=== PATIENT | male | born 1955 | race Caucasian/White ===

== ENCOUNTER 2019-12-11 19:55 | Inpatient (IN) | payer MEDICARE ==
[~2019-12-11] VITALS: Ht 167.6 cm; Wt 56.6 kg
--- NOTE | ~2019-12-11 | HEMODYNAMI ---
PATIENT:ELISEO WOODWARD MEDICAL RECORD: [id number] : 51 [id number] ADMISSION DATE: 12/24/19 Generatedon:12/24/201910:47 Patient name: ELISEO WOODWARD Patient #: [id number] SSN: : 1955 Date of study: 12/24/2019 Page: Of Hemodynamic Procedure Report Patient Data Patient Demographics First Name: ELISEO Gender: Male Last Name: TRACE : 1955 Patient #: [id number] Age: 64 year(s) Race: Unknown Additional ID: [id number] Contact details Address: [address] [place] [address] State: [place] City: [place] Zip code: [address] Admission Admission Data Admission Date: 12/24/2019 Admission Time: 6:17 Room #: [facility] Procedure Procedure Types Cath Procedure Peripheral Cath Diagnostic Procedure Miscellaneous Procedure Description Procedure Date Procedure Date: 12/24/2019 Procedure Start Time: 9:35 Procedure Staff Name Function Oswald Nunez MD Performing Physician WALTER FRASER RT Scrub Giovany Umanzor RT Monitor Delmy Arriola RN Nurse Procedure Data Cath Procedure Fluoroscopy Diagnostic fluoroscopy Total fluoroscopy Time: 7.8 time: 7.8 min min Diagnostic fluoroscopy Total fluoroscopy dose: 367 dose: 367 mGy mGy Contrast Material Contrast Material Type Amount (ml) Isovue 300 60 Diagnostic catheters Device Type Used For End Catheter Placement Merit Impress [place] 5FR. 100CM catheter ([id number]) Procedure Medications Medication Administration Route Dosage Heparin Flush Bag added to field 4 bags (1000units/500ml NS) Lidocaine 1% added to field 20 Versed I.V. 0.5 mg Fentanyl I.V. 25 mcg Heparin Bolus I.V. 4000 units Hemodynamics Rest Heart Rate: 96 (bpm) Snapshots Pre Cath Intra NCS Post Cath Vital Signs Time Heart Resp SPO2 etCO2 NIBP (mmHg) Rhythm Pain Sedation Rate (ipm) (%) (mmHg) Status Level (bpm) 9:13:44 91 25 98 33.7 185/102(142) NSR 0 (11) 10(A) , No pain 9:18:12 95 20 97 31.4 187/98(135) NSR 0 (11) 10(A) , No pain 9:22:37 82 14 97 32.2 163/96(123) NSR 0 (11) 10(A) , No pain 9:27:36 83 23 96 25.4 Measuring NSR 0 (11) 10(A) , No pain 9:28:00 89 19 97 33.7 161/101(146) NSR 0 (11) 10(A) , No pain 9:32:22 89 14 96 32.2 171/99(137) NSR 0 (11) 10(A) , No pain 9:36:45 80 19 99 34.4 169/98(138) NSR 0 (11) 10(A) , No pain 9:41:11 66 21 98 35.1 183/85(125) NSR 0 (11) 10(A) , No pain 9:45:35 72 20 100 32.2 161/89(128) NSR 0 (11) 8(A) , No pain 9:49:55 68 19 99 33.7 151/79(131) NSR 0 (11) 8(A) , No pain 9:54:17 77 18 99 32.2 149/76(124) NSR 0 (11) 8(A) , No pain 9:58:35 68 16 100 32.9 153/80(135) NSR 0 (11) 8(A) , No pain 10:02:54 73 20 100 32.9 170/87(125) NSR 0 (11) 8(A) , No pain 10:07:18 70 20 100 32.9 159/86(132) NSR 0 (11) 8(A) , No pain 10:11:40 62 16 100 32.2 168/75(129) NSR 0 (11) 8(A) , No pain 10:15:56 48 20 100 29.2 81/48(74) NSR 0 (11) 8(A) , No pain 10:17:12 55 23 100 31.4 76/41(55) NSR 0 (11) 8(A) , No pain 10:18:46 50 16 100 20.9 68/47(52) NSR 0 (11) 8(A) , No pain 10:20:41 50 21 99 24.6 75/53(60) NSR 0 (11) 8(A) , No pain 10:22:31 52 23 99 29.9 90/51(85) NSR 0 (11) 8(A) , No pain 10:26:37 53 25 100 31.4 99/49(81) NSR 0 (11) 8(A) , No pain 10:30:33 52 22 100 29.9 101/85(91) NSR 0 (11) 8(A) , No pain 10:34:38 50 16 100 32.9 88/52(76) NSR 0 (11) 8(A) , No pain 10:38:44 61 32 100 26.1 79/57(71) NSR 0 (11) 8(A) , No pain 10:42:46 63 17 100 29.2 90/53(72) NSR 0 (11) 8(A) , No pain 10:46:40 50 12 100 32.1 103/86(95) NSR 0 (11) 8(A) , No pain Medications Time Medication Route Dose Verified Delivered Reason Notes Effec tiveness by by 9:21:22 Heparin Flush added 4 Oswald Akers used for Bag to bags Mayra Nunez procedure (1000units/500ml field MD CARRENO NS) 9:21:36 Lidocaine 1% added 20ml Oswald Akers for local to vial Mayra Nunez anesthetic field MD CARRENO 9:35:07 Versed I.V. 0.5 Oswald Brock for mg Mayra Arriola RN sedation 9:36:25 Fentanyl I.V. 25 Oswald Brock for mcg Mayra Arriola RN sedation 9:42:02 Heparin Bolus I.V. 4000 Oswald Brock Per units Mayra Arriola RN physician Procedure Log Time Note 8:51:52 Giovany Umanzor RT (R) (CV) sent for patient. Start room use. 8:52:02 Time tracking: Regular hours (M-F 7:00 - 5:00) 8:52:08 Plan of Care:Hemodynamics will remain stable., Cardiac rhythm will remain stable., Comfort level will be maintained., Respiratory function will remain adequate., Patient/ family verbilizes understanding of procedure., Procedure tolerated without complication., Recovers from procedure without complications.. 8:53:53 Patient received from Outpatients to IR Alert and oriented. Tansferred to table in Supine position. 8:53:55 Warm blankets applied, and shanda hugger turned on for patient comfort. 8:53:58 Correct patient and procedure confirmed by team. 8:54:02 ECG and BP/O2 sat monitors applied to patient. 8:54:05 Full Disclosure recording started 8:54:05 - 8:54:15 Use device set IR Diagnostic 8:54:16 Tegaderm 4 x 4 (1626W) opened to sterile field. 8:54:17 Sterile Angiographic Pack opened to sterile field. 8:54:18 Bag Decanter (2001S) opened to sterile field. 8:54:19 ACIST Hand Control (34502) opened to sterile field. 8:54:20 ACIST Syringe (78201) opened to sterile field. 8:54:20 ACIST Manifold (01446) opened to sterile field. 8:54:29 H&P Date Dictated: 12/24/2019 H&P Addendum completed by physician on day of procedure. (MUST COMPLETE FOR ALL OUTPATIENTS). 8:54:29 Pre-procedure instructions explained to patient. 8:54:30 Pre-op teaching completed and patient verbalized understanding. 8:54:32 Family unavailable. 8:54:33 Patient NPO since Midnight. 8:54:38 Is the patient allergic to Iodine/contrast media? No. 8:54:40 Is patient on blood thinner?Yes 8:54:43 ACC The patient was administered the following blood thiners within the last 24 hours: ACCPlavix 8:54:45 Patient diabetic? No. 8:54:47 - 8:54:47 ----Pre-sedation anethsthesia assessment.---- 8:54:51 Previous problem with sedation/anesthesia? No ? 8:54:51 Snore? Yes 8:54:53 Sleep apnea? No 8:54:55 Deviated septum? No 8:54:57 Opens mouth fully? Yes 8:54:58 Sticks out tongue? Yes 8:55:01 Airway obstruction? No ? 8:55:20 Dentures? Yes out 8:55:22 - 9:12:28 Vital chart was started 9:12:29 Baseline sample Acquired. 9:13:13 Pre procedure: right dorsailis pedis pulse Doppler 9:13:18 Pre procedure: right posterior tibial pulse Doppler 9:13:23 Patient pain scale 0/10 no pain. 9:13:57 IV patent on arrival in left forearm with 0.9% NaCl at KVO. 9:14:22 2) 60-89 Mildly reduced kidney function, and other findings (as for stage 1) point to kidney disease. 9:15:07 Maximum allowable contrast dose (3.7 X eGFR X 0.75)177.6 ml. 9:15:15 Alarms reviewed by R. N. 9:15:16 Sharps counted by scrub and verified by R.N. 9:15:24 Right groin area was prepped with chlora-prep and draped in sterile fashion 9:21:22 Heparin Flush Bag (1000units/500ml NS) 4 bags added to field was administered by Oswald Nunez MD; used for procedure; Verbal order read back and verified. 9:21:36 Lidocaine 1% 20ml vial added to field was administered by Oswald calvillo MD; for local anesthetic; Verbal order read back and verified. 9:33:27 Physician arrived 9:33:28 --------ALL STOP TIME OUT------ 9:33:29 Final Timeout: patient, procedure, and site verified with staff and physician. All members of the team are in agreement. 9:33:31 Right groin site verified by team. 9:33:34 Fire Safety Assessment: A--An alcohol-based skin anteseptic being used preoperatively., C--Open oxygen or nitrous oxide is being used. 9:33:58 Sedation plan: IV Moderate Sedation Medication:Versed, Fentanyl 9:35:02 Procedure started. 9:35:05 Local anesthetic to right femoral artery with Lidocaine 1% by Oswald Nunez MD.INITIAL ACCESS ONLY 9:35:07 Versed 0.5 mg I.V. was administered by Delmy Arriola RN; for sedation; Verbal order read back and verified. 9:35:08 TUBING Contrast Injection High Pressure ([id number]) opened to sterile field. 9:35:08 TRACY 260 wire (R83160) opened to sterile field. 9:35:08 BENTSON 145cm wire (J84427) opened to sterile field. 9:35:09 SHEATH 5FR Keene (ZIP315) opened to sterile field. 9:35:09 Micropuncture VSI 4FR kit opened to sterile field. 9:35:10 INFLATOR BasixTOUCH (ZN8719) opened to sterile field. 9:35:12 A Merit Impress [place] 5FR. 100CM catheter ([id number]) was advanced over the wire and used for . 9:36:25 Fentanyl 25 mcg I.V. was administered by Delmy Arriola RN; for sedation ; Verbal order read back and verified. 9:41:32 Cook RAABE 6FR. 90cm guide sheath opened to sterile field. 9:42:02 Heparin Bolus 4000 units I.V. was administered by Delmy Arriola RN; Per physician; Verbal order read back and verified. 9:52:05 CHOICE PT Extra Support J 300cm guide wire ([id number]) opened to steril e field. 9:57:35 SPIDER EMBOLIC PROTECTION DEVICE 5MM ([id number]) opened to sterile field. 10:03:16 Inflate balloon Inflation number: 1 A NC EUPHORA 3.0 x 20 balloon ([id number]) was prepped and advanced across the Undefined1 , then inflated to 8 EULOGIO for 0:08 (min:sec) . 10:04:03 SHEATH 6FR [place] (FOI973) opened to sterile field. 10:09:56 PROTEGE RX TAPERED 8-6MM X 30MM X 135CM stent ([id number]) was deploye d across Undefined1 . 10:13:25 Inflate balloon Inflation number: 2 A VIATRAC 5 x 2 x 135 balloon ([id number]) was prepped and advanced across the Undefined1 , then inflated to 8 EULOGIO for 0:00 (min:sec) . 10:25:42 ANGIOSEAL-[facility] PLUS 6 FR opened to sterile field. 10:30:00 Procedure ended.(Physican Out) 10:31:07 Fluoroscopy time 07.80 minutes. 10:31:11 Fluoroscopy dose: 367 mGy 10:31:11 Flurop Dose total: 367 10:31:16 Post-op/insertion site Right Femoral artery dressed using a 4 x 4 and Tegaderm. 10:31:20 Post right femoral artery:stable 10:31:21 Post Procedure Pulses reassessed and unchanged 10:31:25 Post procedure instruction explained to patient.Patient verbalizes understanding. 10:31:28 Procedure and supply charges have been captured, reviewed, submitted an d are correct. 10:35:18 Contrast amount:Isovue 300 60ml. 10:46:59 Report given to CVICU. 10:47:02 Patient transfered to CVICU with Bed. 10:47:27 Vital chart was stopped Intervention Summary Intervention Notes Time ActionType Lesion and Equipment Action# Pressure Duration Attributes Used 10:03:16 Inflate Undefined1 NC EUPHORA 1 8 00:08 balloon 3.0 x 20 balloon ([id number]) 10:09:56 Deploy self Undefined1 PROTEGE RX 1 expanding TAPERED 8-6MM stent X 30MM X 135CM stent ([id number]) 10:13:25 Inflate Undefined1 VIATRAC 5 x 2 2 8 00:00 balloon x 135 balloon ([id number]) Device Usage Item Name Manufacture Quantity Catalog Number Hospital Part Current Minimal Lot# / Charge Number Stock Stock Serial# Code Tegaderm 4 x 4 3M 1 1626W [id number] 283977 335055 5 (1626W) Sterile Cardinal 1 [id number] 289916 107739 5 Angiographic Health Pack Bag Decanter Microtek 1 2001S 130347 57619 128580 5 (2001S) Medical Inc. ACIST Hand Acist 1 79493 261816 417876 942669 5 Control Medical (95792) Systems Inc ACIST Syringe Acist 1 54878 681541 927660 014547 20 (20566) Medical Systems Inc ACIST Manifold Acist 1 39605 003866 332325 417685 5 (63639) Medical Systems Inc TUBING Merit 1 [id number] 365918 357952 532691 5 Contrast Medical Injection High Pressure (UUO953F) TRACY 260 wire Cook Medical 1 P55002 724783 68248 464776 5 (Q92775) BENTSON 145cm Cook Medical 1 G51238 694397 866546 5 wire (I69095) SHEATH 5FR Terumo 1 ORL812 040546 120446 121610 5 Keene (GZL101) Micropuncture VSI VASCULAR 1 7266V 717838 462126 5 VSI 4FR kit SOLUTIONS INFLATOR Merit 1 CR0179 531461 146754 087324 5 BasixTOChainalytics Medical (WK4892) Merit Impress Merit 1 [id number] 096398 071719 5 [place] 5FR. Medical 100CM catheter ([id number]) Cook [facility] 1 I85079 451405 160022 5 6FR. 90cm guide sheath CHOICE PT [place] 1 [id number] 542276 064674 764388 5 [id number] Extra Support Scientific J 300cm guide wire ([id number]) SPIDER EMBOLIC Medtronic 1 [id number] 071664 475973 5 PROTECTION DEVICE 5MM ([id number]) NC EUPHORA 3.0 Medtronic 1 [id number] 578590 861950 711319 0 x 20 balloon ([id number]) SHEATH 6FR Terumo 1 JJM991 972131 057958 704532 40 Keene (SES136) PROTEGE RX Medtronic 1 [id number]-[id number] 768932 742178 161826 5 [id number] TAPERED 8-6MM X 30MM X 135CM stent ([id number]) VIATRAC 5 x 2 Smith 1 [id number] 871989 194759 126981 5 x 135 balloon Vascular ([id number]) ANGIOSEAL-[facility] [place] 1 511957 919178 555635 191601 5 [id number] PLUS 6 FR Signature Audit [place] Stage Time Signature Unsigned Intra-Procedure 12/24/2019 Giovany 10:47:24 AM [place] RT (R) (CV) [facility] [address] [place] [address]
[2019-12-24] VITALS (28 sets, daily range): BP systolic 81–128; BP diastolic 38–76; Ht 167.6 cm; Wt 56.6 kg
[2019-12-24 06:57] LABS: BASOPHILS 0.4 % (0-2); EOSINOPHILS 2.8 % (0-7); HEMATOCRIT 46.4 % (42.0-54.0); HEMOGLOBIN 15.6 g/dL (13.5-17.5); IMMATURE GRANULOCYTES 0.1 % (0-5); LYMPHOCYTES 35.5 % (15-50); MCH 30.5 pg (26.0-34.0); MCHC 33.6 g/dL (31.0-37.0); MCV 90.8 fL (80.0-100.0); MEAN PLATELET VOLUME 8.9 fL (7.4-10.4); MONOCYTES 10.2 % (2-11); PLATELET COUNT 245 10x3/uL (130-400); RBC 5.11 10x6/uL (4.20-6.10); RDW 13.9 % (11.5-14.5); WBC 7.3 10x3/uL (4.8-10.8)
[2019-12-24 07:11] LABS: APTT 29.1 SECONDS (22.8-39.4); INR 0.98 (0.85-1.17); PROTIME 12.9 SECONDS (11.6-15.0)
[2019-12-24 07:20] LABS: ANION GAP 16.2 mmol/L (8-16); CALCIUM 9.3 mg/dL (8.5-10.1); CARBON DIOXIDE 23.4 mmol/L (21.0-32.0); CREATININE - SERUM 1.2 mg/dL (0.6-1.3); POTASSIUM - SERUM 3.6 mmol/L (3.5-5.1)
[2019-12-24] MEDS ORDERED: ASPIRIN81 MG PO (07:25)
[2019-12-24] MEDS ORDERED: HYDROCODON-ACE1 EA10 PO (07:26)
[2019-12-24] MEDS ORDERED: LIPITOR40 MG PO (07:27)
[2019-12-24] MEDS ORDERED: LISINOPRIL-HCT1 EAC8 PO (07:27)
[2019-12-24] MEDS ORDERED: GABAPENTIN300 MG PO (07:27)
[2019-12-24] MEDS ORDERED: HYDROXYZINE HCL50 MG PO (07:28)
--- NOTE | 2019-12-24 12:13 | NUR ---
PT ARRIVED TO ROOM ATTACHED TO MONITORING EQUIPMENT DENIES PAIN AND ALL NEEDS, GROIN SITE SOFT, NO SIGNS OF BLEEDING, DR PICHARDO NOTIFIED OF LOW BP ASYMPTOMATIC, ORDERS FOR FLUID BOLUS SPOKE WITH JAY IN IR ABOUT BRADYCARDIA, ARRIVED WITH HR IN 50S, DROPPING INTO 40S , STATED SHE WOULD TELL DR PICHARDO
--- NOTE | 2019-12-24 13:24 | NUR ---
PT SEEN BY DR LISS SEGURA, BP AND HR UP AT THIS TIME, LUNCH TRAY SERVED
--- NOTE | 2019-12-24 17:45 | NUR ---
1400 ate lunch tray 1600 i&os done 1730 dinner tray served, pt stated he wasnt hungry and would eat later
--- NOTE | 2019-12-24 19:00 | NUR ---
PT ASSESSMENT COMPLETED AT THIS TIME, PT IS AAOX4 RESTING IN BED, NO CHANGES NOTED FROM NURSE REPORT, PT DENIES COMLAINTS, VSS, WILL MONITOR FOR CHANGES
--- NOTE | 2019-12-24 21:09 | NUR ---
PT GIVEN MEDS AT THIS TIME, PT DENIES PROBLEMS RO COMPLAINTS AT THIS TIME
--- NOTE | 2019-12-24 23:00 | NUR ---
PT REASSESSMENT COMPLETED AT THIS TIME, NO CHANGES NOTED FROM PREVIOUS EXAM, VSS, WILL MONITOR FOR CHANGES
[2019-12-25] VITALS (10 sets, daily range): BP systolic 96–133; BP diastolic 48–84
--- NOTE | 2019-12-25 01:00 | NUR ---
PT RESTING WITH EYES CLOSED, RESP EVEN AND NON LABORED, PT DENIES NEEDS AT THIS TIME
--- NOTE | 2019-12-25 03:00 | NUR ---
PT REASSESSMENT COMPLETED AT THIS TIME, NO CHANGES NOTED FROM PREVIOUS EXAM, PT'S HR SB RATES IN THE LOW 40'S B/P STABLE AND PT DENIES COMPLAINTS, WILL MONITOR FOR CHANGES
--- NOTE | 2019-12-25 05:00 | NUR ---
PT RESTING WITH EYES CLOSED, RESP EVEN AND NON LABORED, VSS, WILL MONITOR FOR CHANGES
--- NOTE | 2019-12-25 08:24 | NUR ---
0700 PT RECIEVED UP IN BED ALERT AND ORIENTED VSS DENIES PAIN AND ALL NEEDS, GROIN SITE SOFT, NO SIGNS OF BLEEDING [address] LEIJA NURSE FADIA, OK TO HOLD BP MEDICATIONS PT STATED THEY MAKE HIS BP TOO LOW AND BP IS WNL AT THIS TIME
--- NOTE | 2019-12-25 10:45 | NUR ---
PT TP DC HOME, PIV DCD TIP INTACT NO SIGNS OF BLEEDING, DC INSTRUCTIONS REVIEWED WITH PT, DENIES ALL QUESTIONS, AWAITING RIDE
--- NOTE | 2019-12-25 11:06 | NUR ---
PT ASSISTED TO VEHICLE 1058.
== END 2019-12-25 11:07 | disposition home or self-care (01) | DRG 36 ==
LOC: D.SDCHOLD 12-24 06:17 → D.CVICU 12-24 10:45
PROVIDERS: ADMIT Radiology Diagnostic Radiology; ATTEND Radiology Diagnostic Radiology
PROC: 037K3DZ Dilation of Right Internal Carotid Artery with Intraluminal Device, Percutaneous Approach (ICD-10-PCS; principal; 2019-12-24 09:00)
DX: G45.9 Transient cerebral ischemic attack, unspecified (principal); I65.21 Occlusion and stenosis of right carotid artery